=== PATIENT | female | born 1990 | race Caucasian/White ===

== ENCOUNTER 2017-01-13 00:41 | Emergency (ER) | payer MEDICARE ==
[2017-01-13 02:21] LABS: BUN/CREATININE RATIO 20 (0-10)
[2017-01-13 02:53] LABS: HEMOGLOBIN 7.1 gm/dl (12.3-15.3); RED BLOOD COUNT 3.23 M/UL (4.00-5.10); WHITE BLOOD COUNT 12.3 K/UL (4.5-11.0)
== END 2017-01-13 04:30 ==
LOC: ER1 00:41
PROVIDERS: Family Medicine
DX: O9A.213 Injury, poisoning and certain other consequences of external causes complicating pregnancy, third trimester (principal); T40.1X1A Poisoning by heroin, accidental (unintentional), initial encounter; R06.81 Apnea, not elsewhere classified; O36.4XX0 Maternal care for intrauterine death, not applicable or unspecified
CPT/HCPCS: 36415; 71010; 76805; 80053; 80307; 81001; 84702; 85025; 87077; 87086; 87186; 96361; 96374; 96375; 99285; G0480; J0696; J2550; J7050